=== PATIENT | male | born 1970 | race Caucasian/White ===

== ENCOUNTER 2023-09-15 15:29 | Inpatient (IN) | payer OTHER ==
[~2023-09-15] VITALS: Ht 188 cm; Wt 132.3 kg
[2023-09-15] MEDS ORDERED: Morphine 4 MG/ML VIAL IV ONE (16:30)
[2023-09-15 16:42] LABS: BASO % 0.5 % (0.0-2.0); EOS # 0.1 K/mm3 (0.0-0.7); GRAN # 6.7 K/mm3 (1.4-6.5); GRAN % 77.3 % (42.2-75.2); HEMATOCRIT 45.3 % (42.0-52.0); LYMPH % 11.6 % (20.0-51.0); MEAN CELL VOLUME 86 fl (80.0-100.0); MEAN CORPUSCULAR HEMOGLOBIN 30 pg (27-31); MEAN CORPUSCULAR HGB CONC 35 g/dl (33.0-37.0); MEAN PLATELET VOLUME 10.6 fl (7.4-10.4); MONO # 0.8 K/mm3 (0.1-0.6); MONO % 9.1 % (1.7-9.3); PLATELET COUNT 205 K/mm3 (130-400); RED BLOOD COUNT 5.28 M/mm3 (4.20-5.60); REDCELL DISTRIBUTION WIDTH-CV 11.7 % (11.5-14.5)
[2023-09-15 16:47] LABS: ERYTHROCYTE SEDIMENTATION RATE 36 mm/hr (0-15)
[2023-09-15 16:56] LABS: ALBUMIN 3.3 gm/dL (3.5-5.0); C-REACTIVE PROTEIN 6.81 mg/dL (0.00-0.50); CALCIUM 9.5 mg/dL (8.4-10.2); CREATININE, serum 1.17 mg/dL (0.72-1.25); POTASSIUM 4.2 mmol/L (3.5-4.5); TOTAL PROTEIN 7.2 gm/dL (6.2-8.1)
[2023-09-15] MEDS ORDERED: NS 1,000 ML IV ONE (17:15)
[2023-09-15] MEDS ORDERED: Insulin Regular Human (NovoLIN R/HumuLIN R) SQ ONE (17:15)
[2023-09-15] MEDS ORDERED: HYDROmorphone 0.5 MG/0.5 ML SYRINGE IV ONE (17:30)
[2023-09-15] MEDS ORDERED: NS 50 ML IV SCH (18:13)
[2023-09-15] MEDS ORDERED: Iohexol 300 - 100 ML VIAL IV ONE (18:13)
[2023-09-15] MEDS ORDERED: LR 1,000 ML IV ONE (18:45)
[2023-09-15] MEDS ORDERED: NEURONTIN800 MG/TAB PO (19:44)
[2023-09-15] MEDS ORDERED: PRILOTC (19:45)
[2023-09-15] MEDS ORDERED: Nicotine 14 MG DAILY PATCH TD SCH (20:31)
[2023-09-15] MEDS ORDERED: ALPRAZolam 0.5 MG TAB PO PRN (20:45)
[2023-09-15] MEDS ORDERED: HYDROmorphone 0.5 MG/0.5 ML SYRINGE IV PRN (20:45)
[2023-09-15] MEDS ORDERED: Acetaminophen 325 MG TAB PO PRN (20:45)
[2023-09-15] MEDS ORDERED: hydrALAZINE 20 MG/ML 1 ML VIAL IV PRN (20:45)
[2023-09-15] MEDS ORDERED: Melatonin 3 MG TAB PO PRN (20:45)
[2023-09-15] MEDS ORDERED: NS 1,000 ML IV SCH (20:45)
[2023-09-15] MEDS ORDERED: oxyCODONE/Acetaminophen 7.5-325 MG TAB PO PRN (20:45)
[2023-09-15] MEDS ORDERED: Ondansetron 4 MG/2 ML VIAL IV PRN (20:45)
[2023-09-15 21:00] VITALS: BP_SYST 141
[2023-09-15] MEDS ORDERED: Glucagon 1 MG VIAL IM PRN (21:00)
[2023-09-15] MEDS ORDERED: Dextrose (Glucose) 15 GM (4 x 3.75 GM) Chewable TABLET PACK PO PRN (21:00)
[2023-09-15] MEDS ORDERED: Insulin Aspart (NovoLOG) SQ SCH (21:00)
[2023-09-15] MEDS ORDERED: Dextrose 50% Water 25 GM/50 ML SYRINGE IV PRN (21:00)
[2023-09-15 21:18] VITALS: BP 141/75; PULSE 95; TEMP 98.3
[2023-09-16] VITALS (13 sets, daily range): BP systolic 123–151; BP diastolic 69–93; PULSE 76–93; TEMP 97.9–99.3
--- NOTE | 2023-09-16 01:22 | NUR ---
pt arrived to room 346 at 2100. pt a&o x4. 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 wound is approximately 3x3in with no drainage. left stump noted to be warm and reddened. pt reports he overworked himself while wearing prosthetic and that is how this began. admission, physical assessment, and med rec complete. pt c/o increased left bka pain. prn dilaudid administered at 2140. pt reports pain relief. pt now resting with iv abx running to left hand iv without issue. call light in reach. all needs met at this time.
--- NOTE | 2023-09-16 01:51 | NUR ---
Vancomycin Initial Dosing Pharmacy Note Ordering provider: Albertina Lerma E., MD Indication/duration: Cellulitis of BKA x 5 days Relevant comorbidities: HTN, DM2 LABS: WBC = 8.7, SCr = 1.17 Recommendation: Will draw troughs and follow levels. Loading dose: 2.5 grams Maintenance dose: 1.5 grams every 12 hours Trough goal: 10-15 ug/mL
[2023-09-16] MEDS ORDERED: Omeprazole 20 MG **** subs to Pantoprazole 40 MG PO SCH (07:00)
[2023-09-16 07:23] LABS: BASO % 0.6 % (0.0-2.0); EOS # 0.1 K/mm3 (0.0-0.7); EOS % 1.8 % (0.0-4.0); GRAN # 4.6 K/mm3 (1.4-6.5); GRAN % 68.4 % (42.2-75.2); HEMATOCRIT 41.3 % (42.0-52.0); HEMOGLOBIN 14.7 g/dl (13.5-18.0); LYMPH # 1.3 K/mm3 (1.2-3.4); LYMPH % 19.4 % (20.0-51.0); MEAN CELL VOLUME 84 fl (80.0-100.0); MEAN CORPUSCULAR HEMOGLOBIN 30 pg (27-31); MEAN CORPUSCULAR HGB CONC 36 g/dl (33.0-37.0); MEAN PLATELET VOLUME 10.5 fl (7.4-10.4); MONO # 0.6 K/mm3 (0.1-0.6); MONO % 9.5 % (1.7-9.3); PLATELET COUNT 187 K/mm3 (130-400); RED BLOOD COUNT 4.91 M/mm3 (4.20-5.60); REDCELL DISTRIBUTION WIDTH-CV 11.6 % (11.5-14.5)
[2023-09-16 07:44] LABS: CALCIUM 8.4 mg/dL (8.4-10.2); CREATININE, serum 0.81 mg/dL (0.72-1.25)
[2023-09-16] MEDS ORDERED: Vancomycin 1.5 GM,Special Dose/Pharmacy Prepared 1.5 GM in NS 250 ML IV SCH (08:00)
--- NOTE | 2023-09-16 09:10 | NUR ---
Pt. laying in bed. Pt. is A&OX3, assessment complete. IV to lt. hand patent. Pt reports pain to stump at a 7 on pain scale. Will give meds per orders. LT. lateral stump area with wound. Total area is about 3 in. in diameter with a scabbed area in the center and reddness around the scab. No drainage noted Pt. denies further needs, call light within reach.
[2023-09-16] MEDS ORDERED: Gabapentin 400 MG CAP PO SCH (10:21)
--- NOTE | 2023-09-16 13:13 | NUR ---
Several visit attempts; Physical Therapist and later a Nurse was there aoyo [employer] left a card offering God's blessings and a message offering Spiritual Care signed by [employer].
--- NOTE | 2023-09-16 13:53 | NUR ---
caustic plant worker met with pt to complete intake assessment. He reports he lives alone in [place], but also has a house in [place], [place] where he lives with his . Pt reports he sees Dr. Mitesh Pineda and obtains medications from [facility] with no difficulties. He is independent with ADLS and uses a prothsetic leg for DME. He does not have a DPOA-HC and was informed his is [facility], [place] [phone]. Pt intends to return home at discharge, but states he anticipates staying here over the weekend if he gets a drain put in his leg. He expressed frustrations that he "let it get this far." SW empathized with patient and let him discuss. He expressed concerns about being in the hospital for so long due to having a cat alone at home. SW inquired about if anyone could take care of this. Pt reports his friend is coming by today to get his keys to check on the cat. PT reports home for patient. Discharge Plan: home
--- NOTE | 2023-09-16 19:57 | NUR ---
report received from carmine fontaine. pt resting in bed watching tv. pt denies pain currently. ivf and iv abx running to left hand iv without issue. call light in reach. all needs met at this time.
--- NOTE | 2023-09-16 22:39 | NUR ---
shift assessment complete, see documentation. pt reporting increased left stump pain. prn dilaudid administered per orders. pt stated he was putting pressure on his stump and it began to drain. cleaned wound with chloroprep and applied mepilex. stump still warm and red around wound. pt reporting pain is tolerable now. iv abx running to left hand iv without issue. call light in reach. all needs met at this time.
[2023-09-17] VITALS (12 sets, daily range): BP systolic 107–159; BP diastolic 65–98; PULSE 68–94; TEMP 97.9–98.4
--- NOTE | 2023-09-17 05:49 | NUR ---
pt reporting increased left stump pain rated 7/10. prn percocet administered per orders. call light in reach. all needs met at this time.
[2023-09-17 06:57] LABS: BASO % 0.4 % (0.0-2.0); EOS # 0.1 K/mm3 (0.0-0.7); EOS % 1.4 % (0.0-4.0); GRAN # 3.9 K/mm3 (1.4-6.5); GRAN % 70.2 % (42.2-75.2); LYMPH % 18.6 % (20.0-51.0); MEAN CELL VOLUME 86 fl (80.0-100.0); MEAN CORPUSCULAR HGB CONC 35 g/dl (33.0-37.0); MEAN PLATELET VOLUME 9.9 fl (7.4-10.4); MONO # 0.5 K/mm3 (0.1-0.6); PLATELET COUNT 167 K/mm3 (130-400); RED BLOOD COUNT 4.05 M/mm3 (4.20-5.60); REDCELL DISTRIBUTION WIDTH-CV 11.6 % (11.5-14.5)
[2023-09-17 06:59] LABS: HEMOGLOBIN 12.2 g/dl (13.5-18.0); MEAN CORPUSCULAR HEMOGLOBIN 30 pg (27-31)
[2023-09-17 07:00] LABS: HEMATOCRIT 34.8 % (42.0-52.0)
[2023-09-17 07:29] LABS: CALCIUM 6.7 mg/dL (8.4-10.2); CREATININE, serum 0.63 mg/dL (0.72-1.25); POTASSIUM 3.3 mmol/L (3.5-4.5)
--- NOTE | 2023-09-17 08:19 | NUR ---
VERIFIED NEURONTIN DOSE WITH MAICOL IN PHARMACY AND CONFIRMED DOSE IS CORRECT.
[2023-09-17] MEDS ORDERED: BASAGLAR K100 UNIT/1 SQ (08:53)
[2023-09-17] MEDS ORDERED: HUMALOG PEN100 U/ML SQ (08:54)
[2023-09-17] MEDS ORDERED: *Potassium Replacement Protocol MC SCH (09:00)
[2023-09-17] MEDS ORDERED: Potassium Bicarbonate/Citrate 20 MEQ Effervescent TAB PO SCH (09:00)
--- NOTE | 2023-09-17 09:21 | NUR ---
PT EATING AND DRINKING, IV FLUIDS PER PUMP. PT UP TO BR WITH WALKER AND SBA X1. PT TO ULTRASOUND AT THIS TIME FOR PROCEEDURE. CONTINUE TO MOBILIZE AND CONTINUE WITH PO INTAKE.
[2023-09-17] MEDS ORDERED: Magnesium Sulfate 4% 50 ML IV ONE (19:15)
--- NOTE | 2023-09-17 20:10 | NUR ---
PT STATES HE PULLED DRIED SKIN OFF OF HIS ABSCESS AND EXPRESSED PUSS OUT OF A POCKET. PT ADVISED NOT TO DEBRED HIS WOUND.
[2023-09-18] VITALS (12 sets, daily range): BP systolic 107–166; BP diastolic 73–115; PULSE 68–94; TEMP 97.4–98.2
[2023-09-18 06:23] LABS: BASO % 0.4 % (0.0-2.0); EOS # 0.1 K/mm3 (0.0-0.7); EOS % 2.2 % (0.0-4.0); GRAN # 3.5 K/mm3 (1.4-6.5); GRAN % 64.8 % (42.2-75.2); HEMATOCRIT 39.5 % (42.0-52.0); HEMOGLOBIN 13.6 g/dl (13.5-18.0); LYMPH # 1.3 K/mm3 (1.2-3.4); LYMPH % 24.5 % (20.0-51.0); MEAN CELL VOLUME 87 fl (80.0-100.0); MEAN CORPUSCULAR HEMOGLOBIN 30 pg (27-31); MEAN CORPUSCULAR HGB CONC 34 g/dl (33.0-37.0); MEAN PLATELET VOLUME 10.3 fl (7.4-10.4); MONO # 0.4 K/mm3 (0.1-0.6); MONO % 7.9 % (1.7-9.3); PLATELET COUNT 203 K/mm3 (130-400); RED BLOOD COUNT 4.55 M/mm3 (4.20-5.60); REDCELL DISTRIBUTION WIDTH-CV 11.8 % (11.5-14.5)
[2023-09-18 06:39] LABS: CALCIUM 8.6 mg/dL (8.4-10.2); CREATININE, serum 0.8 mg/dL (0.72-1.25); POTASSIUM 4.1 mmol/L (3.5-4.5)
--- NOTE | 2023-09-18 07:17 | NUR ---
REMAINS STABLE ON ROUNDS. NO SIGN OF DISTRESS AT THIS TIME.
--- NOTE | 2023-09-18 08:45 | NUR ---
Patient resting in bed. Dr. Lerma rounded, plan of care reviewed. Discussed vanc trough with pharmacy staff, they will adjust. Patient going to order breakfast, but verbalizes his frustration with the food. Patient reports he is starting to feel swollen, Made aware and IVF DC. Patient deneis the need for medications at this time for pain. Will monitor.
--- NOTE | 2023-09-18 11:50 | NUR ---
Patient resting in bed. Thankful to have IV to INT for a few hours. He enjoyed breakfast. Blood sugars still slightly elevated. Treated as ordered. REquest pain medication, medication as ordered. Denies other needs, Will monitor
[2023-09-18] MEDS ORDERED: Vancomycin 1.5 GM,Special Dose/Pharmacy Prepared 1.5 GM in NS 250 ML IV SCH (16:00)
--- NOTE | 2023-09-18 18:28 | NUR ---
Patient resting in bed. Ordering in dinner. Treated with insulin with his afternoon snack. IVf antibioitcs as ordered. Tele health consult completed. Patient deneis needs at this time. Will report off to nightnurse
--- NOTE | 2023-09-18 20:04 | NUR ---
Patient assessed at this time, see shift assessment, his friend just left, he just finished eating pizza that his friend brought, will check blood sugar, denies pain at thi time, still with IV infusing well on left hand, denies further needs, call light and personal items within reach, will continue to monitor.
--- NOTE | 2023-09-18 22:40 | NUR ---
Patient reports pain to left stump, PS of 9/10, IV dilaudid given.
[2023-09-19 00:01] VITALS: BP_SYST 149
[2023-09-19 05:10] VITALS: BP 144/85; PULSE 95; TEMP 98
[2023-09-19 05:57] VITALS: BP_SYST 144
[2023-09-19 06:51] LABS: BASO % 0.3 % (0.0-2.0); EOS # 0.2 K/mm3 (0.0-0.7); EOS % 2.3 % (0.0-4.0); GRAN # 4.9 K/mm3 (1.4-6.5); GRAN % 71.1 % (42.2-75.2); HEMATOCRIT 41.2 % (42.0-52.0); HEMOGLOBIN 14.5 g/dl (13.5-18.0); LYMPH # 1.1 K/mm3 (1.2-3.4); LYMPH % 16.5 % (20.0-51.0); MEAN CELL VOLUME 85 fl (80.0-100.0); MEAN CORPUSCULAR HEMOGLOBIN 30 pg (27-31); MEAN CORPUSCULAR HGB CONC 35 g/dl (33.0-37.0); MEAN PLATELET VOLUME 10.2 fl (7.4-10.4); MONO # 0.6 K/mm3 (0.1-0.6); MONO % 9.4 % (1.7-9.3); PLATELET COUNT 231 K/mm3 (130-400); RED BLOOD COUNT 4.84 M/mm3 (4.20-5.60); REDCELL DISTRIBUTION WIDTH-CV 11.7 % (11.5-14.5)
[2023-09-19 06:58] LABS: CREATININE, serum 0.87 mg/dL (0.72-1.25); POTASSIUM 3.9 mmol/L (3.5-4.5)
[2023-09-19 07:32] VITALS: BP 167/90; BP 179/97; PULSE 93; TEMP 98.3
[2023-09-19] MEDS ORDERED: Potassium Bicarbonate/Citrate 20 MEQ Effervescent TAB PO ONE (07:45)
[2023-09-19 08:13] VITALS: BP_SYST 167
--- NOTE | 2023-09-19 08:19 | NUR ---
Patient resting in bed, ordering breakfast. Ivf antibioitcs as ordered. Reports pain this am,scheduled neurotin given. no other needs at this time, will monitor
[2023-09-19] MEDS ORDERED: CEPHALEXIN500 M1 PO (09:30)
[2023-09-19] MEDS ORDERED: NORVASC 5MG5 MG/TAB PO (10:44)
[2023-09-19 11:42] VITALS: BP 165/115; PULSE 84; TEMP 98.3
[2023-09-19] MEDS ORDERED: amLODIPine 5 MG TAB PO ONE (13:00)
--- NOTE | 2023-09-19 13:45 | NUR ---
rounded, plan of care reviewed and discharge orders obtained. Patient ready to get home and thankful. Home med list reviewed with new scripts. Patient going to picking machine operator at [facility]. He is aware to start taking keflex immediately and take every 6 hours. First dose Norvasc given prior to discharge, aware of elevated BP, she was called and notified. Patient reports going to start him home glucose monitoring at home with home insulin regiment. Int DC. Patient also going to call thursday for PCP appt. Patient dressed independently. Patient wheeled out. Denies questions and concerns.
== END 2023-09-19 13:45 | disposition home or self-care (01) | DRG 566 ==
LOC: COL.ER 15:29 → SURG 19:22
PROVIDERS: Emergency Medicine; Nurse Practitioner Family; ADMIT Hospitalist
DX: T87.42 Infection of amputation stump, left upper extremity (principal); Z79.4 Long term (current) use of insulin; E87.6 Hypokalemia; E83.42 Hypomagnesemia; I10 Essential (primary) hypertension; K21.9 Gastro-esophageal reflux disease without esophagitis; E66.9 Obesity, unspecified; Z68.38 Body mass index [BMI] 38.0-38.9, adult; E11.40 Type 2 diabetes mellitus with diabetic neuropathy, unspecified; E11.51 Type 2 diabetes mellitus with diabetic peripheral angiopathy without gangrene
CPT/HCPCS: J0737; J1170; J1650; J1815; J2270; J2543; J3370; J3475; J7030; J7040; J7050; J7120; Q3014; Q9967